=== PATIENT | male | born 1980 | race Native Hawaiian/Other Pacific Islander ===

== ENCOUNTER 2020-12-07 15:45 | Outpatient (CLI) | payer OTHER | END 2020-12-07 21:08 | disposition home or self-care (01) | LOC: RESP 15:45 | PROVIDERS: ATTEND Physician Assistant | DX: R07.9 Chest pain, unspecified (principal); I10 Essential (primary) hypertension; R00.2 Palpitations | CPT/HCPCS: 93225 ==